=== PATIENT | male | born 1990 | race African-American/Black ===

== ENCOUNTER 2025-07-29 10:17 | Emergency (ER) | payer SELFPAY | END 2025-07-29 11:45 | disposition home or self-care (01) | LOC: CSHERS 10:17 | DX: S16.1XXA Strain of muscle, fascia and tendon at neck level, initial encounter (principal); S39.012A Strain of muscle, fascia and tendon of lower back, initial encounter; Z87.891 Personal history of nicotine dependence; V89.2XXA Person injured in unspecified motor-vehicle accident, traffic, initial encounter | CPT/HCPCS: 99284 ==